=== PATIENT | male | born 1945 | race Caucasian/White ===

== ENCOUNTER 2023-08-07 19:34 | Inpatient (IN) | payer MEDICARE, OTHER, SELFPAY ==
[2023-08-07] VITALS (16 sets, daily range): BP systolic 85–130; BP diastolic 48–79; BMI 23.9
[2023-08-07] MEDS: NSS 2000 IV (16:45)
[2023-08-07] MEDS: TYLENOL 1000 MG PO (16:45)
[2023-08-07 16:47] LABS: % Basophils 0.3 % (0-2); % Eosinophils 1.3 % (0-6); % Immature Granulocytes 0.3 % (0-0.5); % Lymphocytes 21.5 % (20.5-51.1); % Monocytes 0.7 % (1.7-9.3); % Neutrophils 75.9 % (42.2-75.2); Absolute Lymphocytes 0.7 10^3/uL (1.2-3.4); Absolute Neutrophils 2.3 10^3/uL (1.4-6.5); Hemoglobin 12.4 g/dL (13.0-18.0); Mean Corp Hgb Conc. 34.4 g/dL (33.0-37.0); Mean Corpuscular Hgb 29.7 pg (27.0-31.0); Mean Corpuscular Volume 86.3 fL (80.0-94.0); Mean Platelet Volume 9.7 fL (7.4-10.4); Nucleated Red Blood Cells % 0 % (-); Platelet Count 249 10^3/uL (130-400); Red Blood Cell Count 4.17 10^6/uL (4.70-6.10); Red Cell Dist. Width 13.7 % (11.5-14.5)
--- NOTE | 2023-08-07 16:48 | ED.GENMED ---
History of Present Illness
General
Chief Complaint: Fever
Source: patient and family
Exam Limitations: none
Time Seen by Provider: 08/07/23 16:26
Nursing documentation reviewed up to this point in time: agreed with
Travel History
Have you had any contact with someone who has COVID-19?: No
Do you have any symptoms of coronavirus? Fever > 100 degrees, chills, cough, shortness of breath, sore throat, loss of taste or smell, muscle aches, or headache?: Yes
Symptoms:: fever
History of Present Illness
History of Present Illness:
77-year-old male presents with fever and chills with red urine onset just prior to arrival vomited, no shortness of breath, states pain is different his kidney stone pain, he suffers with diabetes
Past History
Past History
ED Past Medical History: NIDDM and Other (Kidney stone)
ED Past Surgical History: Urological
Review of Systems
Review of Systems
All Other Systems: Not applicable
Constitutional: Reports fever, fatigue and chills
EENT: Reports no symptoms
Respiratory: Reports no symptoms
ABD/GI: Reports vomiting
: Reports bleeding
Musculoskeletal: Reports muscle stiffness
Skin: Reports no symptoms
Neurological: Reports weakness
Endocrine: Reports no symptoms
Phy Exam
Physical Exam
Physical Exam:
Physical Exam
General: Ill-appearing male normal mental
Neck: No jaundice
Heart: Tachycardic
Lungs: no acute respiratory distress. clear bilaterally
Abdomen: Soft nontender no CVA tenderness
Neuro: alert and oriented. no focal neurological deficits
Skin: no rash
Psychiatric: well kept. interactive and cooperative
Extremities: no edema.
Course
Orders/Labs/Results
Orders:
Orders
08/07/23 16:24
Electrocardiogram (*1) Urgent
Reason for Study: Other
Other Reason for Exam: Possible Sepsis
Cardiac Monitoring- Treatment ONCE
EKG- Treatment ONCE
IV Insert/Care/Rem.- Treatment PRN
O2 Therapy [RESP] Urgent
Titrate/Wean O2 to maintain O2 sat greater than (%): 93
Special Instructions: TO MAINTAIN CONTINUOUS O2 SATS > OR = 93%
Pulse Ox/cont/shift [RESP] Urgent
Quantity: 1
Special Instructions: CONTINUOUS
08/07/23 16:38
Complete Blood Count/With Diff Urgent
Comprehensive Metabolic Panel Urgent
Lactic Acid Q4H
Comment: ON ICE, CANCEL 2ND ORDER IF FIRST LACTIC ACID LEVEL <2
Blood Culture Q30M
MADDY Source: Blood/Venous
Specimen Description:
Comment: FROM 2 SEPARATE SITES
08/07/23 16:39
Blood Culture Q30M
MADDY Source: Blood/Venous
Specimen Description:
Comment: FROM 2 SEPARATE SITES
08/07/23 16:41
0.9% Sodium Chloride 1000 ml [Nss] 2,000 ml IV BOLUS
Acetaminophen [Tylenol] 1,000 mg PO NOW STA
08/07/23 16:42
Acetaminophen [Tylenol] 1,000 mg .ROUTE .STK-MED ONE
08/07/23 16:47
CT Abd/pel Without Iv Or Oral Urgent
Comment:
Reason For Exam: fever bloody urine
CR Chest - 2 Views Urgent
Comment:
Reason For Exam: fever
08/07/23 16:48
CefTRIAXone [Rocephin] 1,000 mg IV NOW STA
08/07/23 16:56
COVID-19 Antigen Urgent
Source: Nasal Swab
Influenza A+B Rapid Molecular Urgent
MADDY Source: Nasal Swab
Specimen Description:
08/07/23 18:19
Urinalysis Reflex To Culture Urgent
Date Specimen was Collected: 08/07/23
Time Specimen was Collected: 16:24
Urine Microscopic Reflex Cult Urgent
Urine Culture Urgent
MADDY Source: U
Specimen Description:
Date Specimen was Collected: 08/07/23
Time Specimen was Collected: 16:24
08/07/23 18:57
UROLOGY CONSULT Routine
Consulting Provider: Teodoro Art
Was physician already notified: Yes
08/07/23 18:58
Admit/Transfer Patient As Directed
Co-Sign Provider:
Level of Care: Inpatient admission
Assign to:: IMU- Intermediate Care
Physician / Group: gil diaz
Diagnosis: sepsis
Reason for Hospitalization: sepsis
Expected length of stay greater than two midnights?: Yes
ELOS- Estimated Length of Stay in days: 3
I certify the patient meets the requirements for IP care: Yes
08/07/23 18:59
Code Status As Directed
Resuscitation Status: Full Code
08/07/23 20:30
Lactic Acid Q4H
Comment: ON ICE, CANCEL 2ND ORDER IF FIRST LACTIC ACID LEVEL <2
08/09/23 11:00
DC Protocol for Telemetry ONCE
Abnormal Lab Results
08/07/23 08/07/23
16:38 18:19
WBC 3.0 L 10^3/uL
(4.8-10.8)
RBC 4.17 L 10^6/uL
(4.70-6.10)
Hgb 12.4 L g/dL
(13.0-18.0)
Hct 36.0 L %
(39.0-52.0)
Absolute Lymphs (auto) 0.7 L 10^3/uL
(1.2-3.4)
Absolute Monos (auto) 0.0 L 10^3/uL
(0.1-0.6)
Neutrophils % 75.9 H %
(42.2-75.2)
Monocytes % 0.7 L %
(1.7-9.3)
Sodium 134 L mmol/L
(135-145)
Carbon Dioxide 21 L mmol/L
(22-30)
Glucose 128 H mg/dl
(70-99)
Lactic Acid 2.9 H mmol/L
(0.7-2.0)
Ur Occult Blood Reflex 2+ A
(Negative)
Leukocyte Esterase Rfl Trace A
(Negative)
Urine RBC 30-40 A /HPF
(0-2)
Urine Bacteria (Reflex) Many A
(Negative)
08/07/23 16:38
08/07/23 16:38
Vital Signs
Initial and Last Documented VS:
Initial Vital Signs
Temp Pulse Resp BP Pulse Ox
102.3 F H 112 18 122/60 97
08/07/23 16:15 08/07/23 16:15 08/07/23 16:15 08/07/23 16:15 08/07/23 16:15
Last Documented Vital Signs
Temp Pulse Resp BP Pulse Ox
98.2 F 97 19 97/55 97
08/07/23 18:20 08/07/23 19:09 08/07/23 19:09 08/07/23 19:09 08/07/23 16:15
MDM/Problems Addressed
Differential Diagnosis Includes:
Sepsis bacteremia UTI pneumonia COVID influenza renal stone
MDM/Problems Addressed:
Fever chills
Chronic conditions affecting care:
Diabetes
Chronic conditions affecting care: DM
Acute Exacerbation and/or Progression of Chronic Illness: DM
*Radiology
Radiology exam reviewed: preliminary read by ED provider
*Pulse Oximetry
Patient hypoxic: no
*[employer] Interpretation
Rate: normal
Interpretation: abnormal
Heart Rate: 120
Rhythm: sinus
*Critical Care Note
Total Time (30-74mins, 75-104mins- exclusive of procedures): 30
Update Note
Update Note:
5:45 PM labs noted low white count persistently febrile chest x-ray CT the abdomen ports noted antibiotics have been ordered
Update blood pressure a bit soft, will make sure he gets a full 30 cc/kg sepsis resuscitation bolus consideration for pressors
ED Attending Note
-
Portions of this chart may have been created with voice recognition software.� Occasional wrong word or��sound alike� substitutions may have occurred due to the inherent limitations of voice recognition software.
Discharge Plan
Departure
Patient Disposition: Admit
Date of Disposition: 08/07/23
Time of Disposition: 17:51
Admit to: Med/Surg and IMU
Presentation/result/management discussed w/ accepting MD/DO: Hospitalist
Patient with high blood pressure during this ER visit?: No
Condition: Fair
Covid-19: Negative COVID-19
Discharge Problem:
Bacteremia
Interventions
Interventions:
*Risk Screen - Suicide Last Done: 08/07/23 16:44
*General Assessment Last Done: 08/07/23 16:15
*Neglect/Abuse Screening Last Done: 08/07/23 16:44
*ED COVID-19 Vaccine History Last Done: 08/07/23 16:15
ED- Neurological Assessment Last Done: 08/07/23 16:44
ED-Skin Assessment Last Done: 08/07/23 16:44
[2023-08-07 16:57] LABS: Lactic Acid 2.9 mmol/L (0.7-2.0)
[2023-08-07 17:00] LABS: ALT (SGPT) 37 U/L (0-50); AST (SGOT) 59 U/L (17-59); Albumin 3.9 g/dl (3.5-5.0); Alkaline Phosphatase 82 U/L (38-126); Blood Urea Nitrogen 19 mg/dl (9-20); Calcium 8.7 mg/dl (8.4-10.2); Carbon Dioxide 21 mmol/L (22-30); Chloride 105 mmol/L (98-107); Glucose 128 mg/dl (70-99); Potassium 4.5 mmol/L (3.5-5.1); Sodium 134 mmol/L (135-145); Total Bilirubin 0.6 mg/dl (0.2-1.3); Total Protein 6.6 g/dl (6.3-8.2); eGFR > 60.00
[2023-08-07 17:13] LABS: COVID-19 Antigen Negative (Negative)
[2023-08-07] MEDS: ROCEPHIN 1000 MG IV (17:26)
--- NOTE | 2023-08-07 18:32 | HPS.HSE ---
Addendum entered and electronically signed by Rahul Caro MD 08/07/23 19:12:
I independently saw and examined the patient on 08/07/23.
The APPLICATION DEVELOPMENT TEAM LEAD's note was reviewed and I agree with the note.
Comment:
77-year-old male with past medical history of HTN, HLD, type 2 DM, kidney stones and UTI presented with acute onset of fever, chills, associated with generalized weakness. Patient's was present in the patient's room at the time of attempted
patient encounter. Patient said he had hematuria which started as pink but subsequent urination showed bloody urine. Patient also reported dysuria. Patient vomited twice.
Febrile with Temp 102.3 F
Tachycardic in the low 100s range
BP good
RR good
Oxygen saturations good
Physical Exam
General: Well Developed, Well Nourished and No Apparent Distress
HEENT: Normocephalic, Moist mucous membranes and Atraumatic
Respiratory: Clear
Cardiac: S1/S2 and Regular Rhythm
GI: Soft, Non Tender, Non Distended and Normal Bowel Sounds
Musculoskeletal: No Cyanosis and No Edema
Skin: Warm. Dry.
Neuro: AAO x 3 and Nonfocal/grossly intact
Psych: Calm
Assessment/Plan
#fever/chills unclear cause likely complicated UTI/punctate right intrarenal calculi
#Sepsis Secondary to Complicated UTI
#Hematuria
-sepsis as evident by tachy and lactic.
-UA occult blood and RBCs, trace leukocyte esterase, and many bacteria
-lactic 2.9 -- trend lactic acid
-covid negative
-chest x ray negative for acute disease
-CT abdomen pelvis as per radiologist's report with No CT evidence for obstructive uropathy. Punctate right intrarenal calculi. Small calcifications in the posterior urinary bladder lumen.. Mild chronic pancreatitis. Colonic diverticulosis. Severe
aortobiiliac calcified atherosclerosis.
-negative for influenza and b
-Follow blood cultures
-iv ceftriaxone
-urology consulted, recommendations appreciated
-PT/OT consult
# hyperlipidemia
-Zetia continued
-zocor continued
# Type 2 diabetes
-sliding scale and accuchecks ACHS
-CHO diet
-glargine 10u at hs (reduced from home dose)
-hold metformin
#essential htn
-valsartan continued
#DVT prophylaxis
-scd
#CODE status
-full code
Original Note:
Family Physician
-
Family Physician: Jackson Garcia
Chief Complaint
-
chills
generalized weakness
n/v
History of Present Illness
77-year-old male presents with PMH for HTN, HLD, type 2 DM, kidney stones, UTI presented to us with acute onset of fever, chills, associated with generalized weakness. patient vomited twice. he also noted transient bloody urine, urinary frequency
and was uncomfortable. denied NEVES, dizzy or syncopal episode. denied chest pain, sob. denied abdominal pain, diarrhea.
UA negative. covid , flu negative. chest x ray negative. admitting for further managment.
Medical History
Past Medical History
Past Medical History: Reports Other
Additional Past Medical History:
htn
hld
type 2 Dm
kidney stones
Past Surgical History: Reports Other
Additional Past Surgical History:
kidney stone extraction
Social History
Tobacco: Non-smoker
Alcohol: None
Drug: None
Personal:
Living: With Family
Family History
Family History: Not pertinent
Allergies / Home Medications
Allergies reflects when Allergies were last updated in [facility].
Home Medications with original date entered in [facility]
Allergy/Medication List:
Allergies
Allergy/AdvReac Type Severity Reaction Status Date / Time
No Known Allergies Allergy Unverified 08/07/23 16:21
Home Medications
aspirin 81 mg tablet,delayed release 81 mg PO QPM 08/07/23
ezetimibe 10 mg tablet (Zetia) 10 mg PO QPM 08/07/23
insulin glargine U-300 conc 300 unit/mL (3 mL) subcutaneous pen (Toujeo Max U-300 SoloStar) 33 unit SC QPM 08/07/23
metformin 500 mg tablet,extended release 24 hr 1,000 mg PO BID 08/07/23
naproxen sodium 220 mg tablet (Aleve) 220 mg PO BID PRN mild pain 08/07/23
simvastatin 40 mg tablet (Zocor) 40 mg PO QPM 08/07/23
therapeutic multivitamin 1 tab PO DAILY 08/07/23
valsartan 160 mg tablet 160 mg PO QPM 08/07/23
Review of Systems
-
Constitutional: Reports Fever, Fatigue and Chills
EENT: Reports No Symptoms
Respiratory: Reports No Symptoms
Cardiac: Reports No Symptoms
Abdomen/GI: Reports Nausea and Vomiting
: Reports Difficulty Voiding and Bleeding
Musculoskeletal: Reports No Symptoms
Skin: Reports No Symptoms
Neurological: Reports No Symptoms
Endocrine: Reports No Symptoms
Hematologic/Lymphatic: Reports No Symptoms
Psych: Reports No Symptoms
Physical Exam
Vital Signs
Vital Signs
Temp Pulse Resp BP Pulse Ox
98.2 F 104 17 126/63 97
08/07/23 18:20 08/07/23 18:00 08/07/23 18:00 08/07/23 18:00 08/07/23 16:15
Physical Exam
General: Well Developed, Well Nourished and No Apparent Distress
HEENT: NormoCephalic, Moist mucous membranes and Atraumatic
Respiratory: Clear
Cardiac: S1/S2 and Regular Rhythm; No Murmur or Rub
GI: Soft, Non Tender, Non Distended and Normal Bowel Sounds; No Organomegaly
Rectal: Deferred by Provider
Musculoskeletal: No Clubbing, No Cyanosis and No Edema
Skin: No Rash
Neuro: AO x 3 and Nonfocal/grossly intact
Psych: Calm
Laboratory Results
-
08/07/23 16:38
08/07/23 16:38
Laboratory Results
Lactic Acid 2.9 mmol/L (0.7-2.0) H 08/07/23 16:38
Total Bilirubin 0.6 mg/dl (0.2-1.3) 08/07/23 16:38
AST 59 U/L (17-59) 08/07/23 16:38
ALT 37 U/L (0-50) 08/07/23 16:38
Alkaline Phosphatase 82 U/L (38-126) 08/07/23 16:38
Data Reviewed
-
Diagnostic Radiology: Report Reviewed by me
CT Scan: Report Reviewed by me
Lab Data: Labs Reviewed by me
Impression/Plan
-
#fever/chills unclear cause likely complicated UTI/punctate right intrarenal calculi
-sepsis as evident by tachy and lactic.
-UA negative
-lactic 2.9
-covid negative
-chest x ray negative for acute disease
-CT abdomen pelvis with No CT evidence for obstructive uropathy. Punctate right intrarenal calculi. Small calcifications in the posterior urinary bladder lumen.. Mild chronic pancreatitis. Colonic diverticulosis. Severe aortobiiliac calcified
atherosclerosis.
-negative for influenza and b
-blood culture sent from ER
-trend lactic acid
-iv ceftriaxone
-urology consulted
-PT/OT consult
# hyperlipidemia
-Zetia continued
-zocor continued
# Type 2 diabetes
-sliding scale
-CHO diet
-glargine 10u at hs
-hold metformin
#essential htn
-valsartan continued
#DVT prophylaxis
-scd
#CODE status
-full code
[2023-08-07 18:34] LABS: Urine Albumin Trace (Neg - Trace); Urine Bilirubin Negative (Negative); Urine Character Clear (Clear); Urine Color Yellow; Urine Glucose Negative (Negative); Urine Ketone Negative (Negative); Urine Leukocyte Trace (Negative); Urine Nitrite Negative (Negative); Urine Occult Blood 2+ (Negative); Urine Specific Gravity 1.015 (<1.030); Urine Urobilinogen Negative (Neg - 1+)
[2023-08-07 18:38] LABS: Urine Bacteria Many (Negative); Urine Red Blood Cell 30-40 /HPF (0-2); Urine Squamous Cell 0-2 /LPF (Few)
[2023-08-07] MEDS: LEVOPHED 250 IV (20:03)
[2023-08-07] MEDS: NSS 1000 IV ×2 (20:03→22:09)
--- NOTE | 2023-08-07 21:14 | TRANSFER ---
Received pt from the ER via stretcher, he was able to stand and ivot to his bed without difficulty or dizziness. He is alert and oriented and cooperative. Lungs are clear and rhythm is NSR at 92 BPM. Fammily arrived with patient and at the
bedside. Glucose obtained and lactic level drawn. NSS bolus completed. Lunch box given and pt oriented to his room and call mayer in reach.
[2023-08-07 21:25] LABS: Glucose - Point of Care 108 mg/dl (70-99)
[2023-08-07 21:41] LABS: Lactic Acid 1.9 mmol/L (0.7-2.0)
[2023-08-07] MEDS: LANTUS 0.0800000000000000017 UNITS SC (22:15)
[2023-08-08] VITALS (42 sets, daily range): BP systolic 82–149; BP diastolic 39–76; PULSE 79–88; O2SAT 96–97; BMI 23.1
[2023-08-08 05:37] LABS: Hematocrit 30.1 % (39.0-52.0); Hemoglobin 10.3 g/dL (13.0-18.0); Mean Corp Hgb Conc. 34.2 g/dL (33.0-37.0); Mean Corpuscular Hgb 30.4 pg (27.0-31.0); Mean Corpuscular Volume 88.8 fL (80.0-94.0); Mean Platelet Volume 10.3 fL (7.4-10.4); Platelet Count 192 10^3/uL (130-400); Red Blood Cell Count 3.39 10^6/uL (4.70-6.10); Red Cell Dist. Width 13.9 % (11.5-14.5); White Blood Cell Count 22.1 10^3/uL (4.8-10.8)
--- NOTE | 2023-08-08 07:08 | W.PN.HOSP.TC ---
Today's Communication/Plan
-
cont IV abx
follow cultures
trend WBC
repeat urine culture
Downgrade to tele
glycemic control
Assessment / Plan
Assessment / Plan
Physical Exam
General: Well Developed, Well Nourished and No Apparent Distress
HEENT: Normocephalic, Moist mucous membranes and Atraumatic
Respiratory: Clear
Cardiac: S1/S2 and Regular Rhythm
GI: Soft, Non Tender, Non Distended and Normal Bowel Sounds
Musculoskeletal: No Cyanosis and No Edema
Skin: Warm. Dry.
Neuro: AAO x 3 and Nonfocal/grossly intact
Psych: Calm
77M HTN, HLD, type 2 DM, kidney stones, UTI p/w acute onset of fever, chills, associated with generalized weakness, vomiting, transient hematuria, urinary frequency, dysuria. COVID Flu negative. CXR no acute abn's. Initial tachycardia fever w
associate hypotension lactic acidosis concerning for severe sepsis. Admitted to IMU on low dose pressors, patient improved with IVF supplementation, lactic acidosis resolved. Pt eventually weaned off pressor support by morning.
#Possible Sepsis UTI
-UA negative
-lactic 2.9 resolved
-covid negative
-chest x ray negative for acute disease
-CT abdomen pelvis with No CT evidence for obstructive uropathy. Punctate right intrarenal calculi. Small calcifications in the posterior urinary bladder lumen.. Mild chronic pancreatitis. Colonic diverticulosis. Severe aortobiiliac calcified
atherosclerosis.
-negative for influenza and b
-blood culture ngtd
-initial urine culture contaminated, repeat urine culture ordered
-cont iv ceftriaxone
-urology consult appreciated
-PT/OT consult appreciated anticipated no needs when ready for discharge
# hyperlipidemia
-Zetia continued
-zocor continued
# Type 2 diabetes
-A1c 7.6
-sliding scale
-CHO diet
-glargine 8U QPM
-hold metformin
-monitor and titrate insulin regimen as necessary
#essential htn
-valsartan on hold d/t hypotension as above
-monitor and consider resuming if BP increases
#DVT prophylaxis
-scd
#CODE status
-full code
Stable for downgrade to Tele 08/08
Discussed with patient and his
I spent a total of 50 minutes with the patient or on the floor. More than 50% of this time involved counseling and coordination of care.
Anticipated Discharge: 24 - 48 hours
Subjective/Interval History
-
Date of Service: August 08, 2023
Seen and examined at bedside in no acute distress. Reported feeling overall well. Denied pain fever chills dysuria.
Objective Data
-
Labs:
Laboratory Results
08/08/23
05:16
WBC 22.1 H
Hgb 10.3 L
Hct 30.1 L
Plt Count 192 D
Vital Signs:
Vital Signs
Temp Pulse Resp BP Pulse Ox
100.0 F 79 21 128/56 93
08/08/23 04:18 08/08/23 06:15 08/08/23 06:15 08/08/23 06:00 08/08/23 06:15
I&O
08/07/23 08/08/23 08/09/23
06:59 06:59 06:59
Intake Total 1200 / 1200
Output Total 250 / 250
Balance 950 / 950
[2023-08-08 07:29] LABS: Glucose - Point of Care 188 mg/dl (70-99)
--- NOTE | 2023-08-08 09:40 | PTCARENOTE ---
levophed drip at 3mcg/min. goal systolic b/p >90. bp 124/76 at 0850. pt assisted out of bed to chair. denies lightheadedness or dizziness, sinus rhythm with rate 80's. levophed rate decreased to 2mcg/min. b/p 140/62 at 0915. levophed discontinued.
b/p 100/53 at 0940. continuing to monitor
[2023-08-08] MEDS: NOVOLOG FLEXPEN-LOW RESISTANCE 1 UNITS SC ×2 (09:41→11:56)
--- NOTE | 2023-08-08 10:03 | CONS.URO ---
Consultation
-
Date/Time Consultation Requested: 08/08/23
Date/Time Consultation Performed: 08/08/23 0815
Requesting Provider: ER
Performing Provider: Kaelyn
Reason for Consultation: hematuria, cUTI
Medical History
History of Present Illness
77M w/ prior urologic history of kidney stones (outside of ) presents to ER w/ acute onset of fever, chills, generalized weakness, vomiting.
Noted acute onset of hematuria w/ urinary frequency earlier in day.
Denies prior h/o hematuria.
Denies dysuria.
Voiding clear urine when examined in his room this morning (urinal at bedside).
Past Medical History
Past Medical History: HTN and Other (Hyperplipidemia, T2DM, nephrolithiasis)
Past Surgical History: Urological (ureteroscopy/stone extraction)
Social History
Tobacco: Non-smoker
Alcohol: None
Drug: None
Personal:
Living: With Family
Employment: Retired
Family History
Family History: Reviewed & Not Pertinent
Allergies/Home Medications
Allergies
Allergy/AdvReac Type Severity Reaction Status Date / Time
No Known Allergies Allergy Unverified 08/07/23 16:21
Home Medications
Medication Instructions Recorded Confirmed Type
aspirin 81 mg tablet,delayed 81 mg PO QPM 08/07/23 08/07/23 History
release
ezetimibe 10 mg tablet (Zetia) 10 mg PO QPM 08/07/23 08/07/23 History
insulin glargine U-300 conc 300 33 unit SC QPM 08/07/23 08/07/23 History
unit/mL (3 mL) subcutaneous pen
(Toujeo Max U-300 SoloStar)
metformin 500 mg tablet,extended 1,000 mg PO BID 08/07/23 08/07/23 History
release 24 hr
naproxen sodium 220 mg tablet 220 mg PO BID PRN mild pain 08/07/23 08/07/23 History
(Aleve)
simvastatin 40 mg tablet (Zocor) 40 mg PO QPM 08/07/23 08/07/23 History
therapeutic multivitamin 1 tab PO DAILY 08/07/23 08/07/23 History
valsartan 160 mg tablet 160 mg PO QPM 08/07/23 08/07/23 History
Review of Systems
-
History Source: Patient
A 12 point Review of Systems was completed except as noted: Yes
Constitutional: Reports Fever, Weight Loss and Chills
EENT: Reports No Symptoms
Respiratory: Reports No Symptoms
Cardiac: Reports No Symptoms
Abdomen/GI: Reports Vomiting
: Reports Frequency and Bleeding
Musculoskeletal: Reports No Symptoms
Skin: Reports No Symptoms
Neurological: Reports No Symptoms
Endocrine: Reports No Symptoms
Hematologic/Lymphatic: Reports No Symptoms
Psych: Reports No Symptoms
Physical Exam
Vital Signs
Vital Signs
Temp Pulse Resp BP Pulse Ox
99.0 F 97 24 140/62 97
08/08/23 08:43 08/08/23 09:30 08/08/23 09:30 08/08/23 09:16 08/08/23 09:16
Lab / Testing Results
Laboratory Results
08/08/23 05:16
08/07/23 16:38
Physical Exam
General: Well Developed, Well Nourished and No Apparent Distress
HEENT: Normocephalic
Respiratory: Non Labored Respirations
Cardiac: S1/S2
Breast: N/A
GI: Soft, Non Tender and Non Distended
Rectal: Deferred by Provider
Genito-urinary: No Costovertebral Tend and Clear Urine
Musculoskeletal: No Edema
Skin: Warm and Dry
Neuro: AO x 3, No Motor Deficits and Nonfocal/Grossly Intact
Hematologic/Lymphatic: No Lymphadenopathy
Psych: Calm and Intact Judgement
Assessment / Plan
-
Hematuria - suspected secondary to acute cystitis
Urosepsis - secondary to cUTI
CTAP w/o IV contrast: punctate right renal stones, small calcifications in posterior bladder wall => no evidence of obstructive uropathy
WBC 22
Cr wnl
UA +RBCs/many bacteria
UCx pending
- CT imaging reviewed w/ patient
- No indication for urologic intervention
- Consider tamsulosin 0.4 mg qhs WHEN off vasopressors and IF SBPs stable
- IV antibiotics pending UCx S/S
D/w patient.
D/w Hospitalist.
Data Reviewed
-
Total Time Spent with Patient (in minutes): 55
CT Scan: Image personally visualized and interpreted, Report Reviewed by Me, Discussed with Physician and Discussed with Patient
Lab Data: Labs Reviewed, Discussed with Physician and Discussed with Patient
Old Records: Reviewed
[2023-08-08] MEDS: NSS 1000 IV (10:32)
[2023-08-08 10:57] LABS: Glycohemoglobin (HgbA1c) 7.6 % (4.0-5.6)
[2023-08-08 11:49] LABS: Glucose - Point of Care 172 mg/dl (70-99)
[2023-08-08] MEDS: NOVOLOG FLEXPEN-LOW RESISTANCE SC (16:56)
[2023-08-08 16:57] LABS: Glucose - Point of Care 133 mg/dl (70-99)
[2023-08-08] MEDS: ZETIA 10 MG PO (17:45)
[2023-08-08] MEDS: ROCEPHIN 1000 MG IV (17:45)
[2023-08-08] MEDS: LIPITOR 20 MG PO (17:48)
[2023-08-08] MEDS: ASPIR LOW (ENTERIC COATED) 81 MG PO (17:48)
[2023-08-08] MEDS: LANTUS 0.0800000000000000017 UNITS SC (18:38)
[2023-08-08 18:43] LABS: Glucose - Point of Care 231 mg/dl (70-99)
[2023-08-08 21:37] LABS: Glucose - Point of Care 146 mg/dl (70-99)
[2023-08-08 22:31] LABS: Hepatitis C Antibody Negative (Negative)
[2023-08-09 03:39] VITALS: BP 116/70
--- NOTE | 2023-08-09 07:25 | W.PN.HOSP.TC ---
Today's Communication/Plan
-
cont IV abx
repeat blood cultures
trend WBC
glycemic control
Assessment / Plan
Assessment / Plan
Physical Exam
General: Well Developed, Well Nourished and No Apparent Distress
HEENT: Normocephalic, Moist mucous membranes and Atraumatic
Respiratory: Clear
Cardiac: S1/S2 and Regular Rhythm
GI: Soft, Non Tender, Non Distended and Normal Bowel Sounds
Musculoskeletal: No Cyanosis and No Edema
Skin: Warm. Dry.
Neuro: AAO x 3 and Nonfocal/grossly intact
Psych: Calm
77M HTN, HLD, type 2 DM, kidney stones, UTI p/w acute onset of fever, chills, associated with generalized weakness, vomiting, transient hematuria, urinary frequency, dysuria. COVID Flu negative. CXR no acute abn's. Initial tachycardia fever w
associate hypotension lactic acidosis concerning for severe sepsis. Admitted to IMU on low dose pressors, patient improved with IVF supplementation, lactic acidosis resolved. Pt eventually weaned off pressor support by morning.
#Possible Sepsis UTI
-initially admitted to IMU, with clinical improvement downgraded to Tele 08/08
-UA negative
-lactic 2.9 resolved
-covid negative
-chest x ray negative for acute disease
-CT abdomen pelvis with No CT evidence for obstructive uropathy. Punctate right intrarenal calculi. Small calcifications in the posterior urinary bladder lumen.. Mild chronic pancreatitis. Colonic diverticulosis. Severe aortobiiliac calcified
atherosclerosis.
-negative for influenza and b
-one set of blood cultures positive anearobic bottle G+ cocci in clusters, rest of initial blood cultures negative, suspect contaminant, cultures repeated, follow up speciation
-initial urine culture contaminated, patient however overall improving regardless, no need for repeat urine culture at this time
-cont iv ceftriaxone
-urology consult appreciated
-PT/OT consult appreciated anticipated no needs when ready for discharge
# hyperlipidemia
-Zetia continued
-zocor continued
# Type 2 diabetes
-A1c 7.6
-sliding scale
-CHO diet
-glargine 8U QPM
-hold metformin
-monitor and titrate insulin regimen as necessary
#essential htn
-valsartan on hold d/t hypotension as above
-monitor and consider resuming if BP increases
#DVT prophylaxis
-scd
#CODE status
-full code
Discussed with patient and his
I spent a total of 50 minutes with the patient or on the floor. More than 50% of this time involved counseling and coordination of care.
Anticipated Discharge: 24 - 48 hours
Subjective/Interval History
-
Date of Service: August 09, 2023
No new acute issues reports feeling well. Appears comfortable at this time.
Objective Data
-
Labs:
Laboratory Results
08/09/23
06:19
WBC Pending
Hgb Pending
Hct Pending
Plt Count Pending
Sodium Pending
Potassium Pending
Chloride Pending
Carbon Dioxide Pending
BUN Pending
Creatinine Pending
Glucose Pending
Calcium Pending
Vital Signs:
Vital Signs
Temp Pulse Resp BP Pulse Ox
99.1 F 80 18 116/70 97
08/09/23 03:39 08/09/23 03:39 08/09/23 03:39 08/09/23 03:39 08/09/23 03:39
I&O
08/08/23 08/09/23 08/10/23
06:59 06:59 06:59
Intake Total 2490 / 2490 240 / 240
Output Total 600 / 600 375 / 375
Balance 1890 / 1890 -135 / -135
[2023-08-09 07:43] LABS: Glucose - Point of Care 190 mg/dl (70-99)
[2023-08-09 07:44] VITALS: BP 123/69
[2023-08-09 07:45] LABS: Hematocrit 31.1 % (39.0-52.0); Hemoglobin 10.5 g/dL (13.0-18.0); Mean Corp Hgb Conc. 33.8 g/dL (33.0-37.0); Mean Corpuscular Hgb 29.9 pg (27.0-31.0); Mean Corpuscular Volume 88.6 fL (80.0-94.0); Mean Platelet Volume 10.4 fL (7.4-10.4); Platelet Count 188 10^3/uL (130-400); Red Blood Cell Count 3.51 10^6/uL (4.70-6.10); Red Cell Dist. Width 14.3 % (11.5-14.5)
[2023-08-09] MEDS: NOVOLOG FLEXPEN-LOW RESISTANCE 1 UNITS SC ×3 (07:51→17:29)
[2023-08-09 07:58] LABS: Blood Urea Nitrogen 16 mg/dl (9-20); Calcium 8.3 mg/dl (8.4-10.2); Carbon Dioxide 22 mmol/L (22-30); Chloride 110 mmol/L (98-107); Estimated Creatinine Clearance 64 ml/min; Glucose 117 mg/dl (70-99); Magnesium 1.9 mg/dl (1.6-2.3); Phosphorus 2.9 mg/dl (2.5-4.5); Potassium 3.9 mmol/L (3.5-5.1); Sodium 136 mmol/L (135-145); eGFR > 60.00
[2023-08-09 11:18] VITALS: BP 137/60
[2023-08-09 12:09] LABS: Glucose - Point of Care 168 mg/dl (70-99)
--- NOTE | 2023-08-09 13:32 | CM ---
metrology manager reviewed patient's chart and met with patient and patient reports that he lives with his spouse in a multilevel home, patient is independent with adl's and ambulation, patient works, and drives, patient has a prescription plan and uses
[facility].
PCP: Dr. Garcia
Plan; Home no needs when stable.
[2023-08-09 15:11] VITALS: BP 116/59
[2023-08-09 16:55] LABS: Glucose - Point of Care 190 mg/dl (70-99)
[2023-08-09] MEDS: ASPIR LOW (ENTERIC COATED) 81 MG PO (17:28)
[2023-08-09] MEDS: ZETIA 10 MG PO (17:28)
[2023-08-09] MEDS: LIPITOR 20 MG PO (17:28)
[2023-08-09] MEDS: LANTUS 0.0800000000000000017 UNITS SC (17:29)
[2023-08-09] MEDS: ROCEPHIN 1000 MG IV (17:29)
[2023-08-09 19:12] VITALS: BP 145/60
[2023-08-09 21:31] LABS: Glucose - Point of Care 183 mg/dl (70-99)
[2023-08-09 23:44] VITALS: BP 128/62
[2023-08-10] VITALS (8 sets, daily range): BP systolic 119–167; BP diastolic 51–88; PULSE 92; O2SAT 98; BMI 23.0
[2023-08-10 06:57] LABS: Hematocrit 32.5 % (39.0-52.0); Hemoglobin 11.2 g/dL (13.0-18.0); Mean Corp Hgb Conc. 34.5 g/dL (33.0-37.0); Mean Corpuscular Hgb 30.6 pg (27.0-31.0); Mean Corpuscular Volume 88.8 fL (80.0-94.0); Mean Platelet Volume 10.5 fL (7.4-10.4); Platelet Count 182 10^3/uL (130-400); Red Blood Cell Count 3.66 10^6/uL (4.70-6.10); Red Cell Dist. Width 13.9 % (11.5-14.5); White Blood Cell Count 10.4 10^3/uL (4.8-10.8)
--- NOTE | 2023-08-10 06:58 | W.PN.HOSP.TC ---
Today's Communication/Plan
-
IV abx transitioned to oral cefdinir
Follow recent blood cultures
If patient remains stable/continues to improve, and recent blood cultures remain negative, likely discharge tomorrow
Assessment / Plan
Assessment / Plan
Physical Exam
General: Well Developed, Well Nourished and No Apparent Distress
HEENT: Normocephalic, Moist mucous membranes and Atraumatic
Respiratory: Clear
Cardiac: S1/S2 and Regular Rhythm
GI: Soft, Non Tender, Non Distended and Normal Bowel Sounds
Musculoskeletal: No Cyanosis and No Edema
Skin: Warm. Dry.
Neuro: AAO x 3 and Nonfocal/grossly intact
Psych: Calm
77M HTN, HLD, type 2 DM, kidney stones, UTI p/w acute onset of fever, chills, associated with generalized weakness, vomiting, transient hematuria, urinary frequency, dysuria. COVID Flu negative. CXR no acute abn's. Initial tachycardia fever w
associate hypotension lactic acidosis concerning for severe sepsis. Admitted to IMU on low dose pressors, patient improved with IVF supplementation, lactic acidosis resolved. Pt eventually weaned off pressor support by morning.
#Possible Sepsis UTI with associate shock
-initially admitted to IMU, with clinical improvement downgraded to Tele 08/08
-UA negative
-lactic 2.9 resolved
-covid negative
-chest x ray negative for acute disease
-CT abdomen pelvis with No CT evidence for obstructive uropathy. Punctate right intrarenal calculi. Small calcifications in the posterior urinary bladder lumen.. Mild chronic pancreatitis. Colonic diverticulosis. Severe aortobiiliac calcified
atherosclerosis.
-negative for influenza and b
-initial blood cultures likely contaminated coag neg staph, repeat blood cultures so for NGTD 24 hours
-initial urine culture contaminated, patient however overall improving regardless, no need for repeat urine culture at this time
-iv ceftriaxone converted to cefdinir planned for 5 more days
-urology consult appreciated
-PT/OT consult appreciated anticipated no needs when ready for discharge
# hyperlipidemia
-Zetia continued
-zocor continued
# Type 2 diabetes
-A1c 7.6
-sliding scale
-CHO diet
-glargine 8U QPM
-hold metformin
-monitor and titrate insulin regimen as necessary
#essential htn
-valsartan on hold d/t hypotension as above
-monitor and consider resuming if BP increases
#DVT prophylaxis
-scd
#CODE status
-full code
I spent a total of 50 minutes with the patient or on the floor. More than 50% of this time involved counseling and coordination of care.
Anticipated Discharge: Within 24 hours
Subjective/Interval History
-
Date of Service: August 10, 2023
No acute distress reports feeling well. denies new acute issues at this time.
Objective Data
-
Labs:
Laboratory Results
08/10/23
06:18
WBC Pending
Hgb Pending
Hct Pending
Plt Count Pending
Sodium Pending
Potassium Pending
Chloride Pending
Carbon Dioxide Pending
BUN Pending
Creatinine Pending
Glucose Pending
Calcium Pending
Vital Signs:
Vital Signs
Temp Pulse Resp BP Pulse Ox
98.1 F 61 20 119/51 98
08/10/23 03:00 08/10/23 03:00 08/10/23 03:00 08/10/23 03:00 08/10/23 03:00
I&O
08/08/23 08/09/23 08/10/23
06:59 06:59 06:59
Intake Total 2490 / 2490 240 / 240 1620 / 1620
Output Total 600 / 600 375 / 375
Balance 1890 / 1890 -135 / -135 1620 / 1620
[2023-08-10 07:05] LABS: Blood Urea Nitrogen 17 mg/dl (9-20); Calcium 8.7 mg/dl (8.4-10.2); Carbon Dioxide 26 mmol/L (22-30); Chloride 104 mmol/L (98-107); Estimated Creatinine Clearance 64 ml/min; Glucose 162 mg/dl (70-99); Phosphorus 3.7 mg/dl (2.5-4.5); Potassium 4.4 mmol/L (3.5-5.1); Sodium 137 mmol/L (135-145); eGFR > 60.00
[2023-08-10 07:42] LABS: Glucose - Point of Care 156 mg/dl (70-99)
[2023-08-10] MEDS: NOVOLOG FLEXPEN-LOW RESISTANCE 1 UNITS SC ×3 (08:01→17:30)
[2023-08-10 11:42] LABS: Glucose - Point of Care 194 mg/dl (70-99)
--- NOTE | 2023-08-10 13:05 | PN.CDI ---
CDI
- -
CDI:
Physician Documentation Request
Admit Date: 08/07/23 19:34
Dear Doctor Lino,
Please review the following and provide your response in the progress notes.
Current documentation includes a diagnosis of hypotension.
Clinical Indicators:
- 08/09 PN 'hypotension lactic acidosis concerning for severe sepsis'
- 'Admitted to IMU on low dose pressors'
- Started on Levophed
- 08/08 systolic BP 80-90's, MAPs 60's
Please clarify which of the following is the most likely etiology of the above symptoms and treatment rendered:
Septic shock
Shock, unknown type
Hypotension - indicate type/etiology, such as idiopathic, neurogenic or orthostatic, post-procedural, postoperative, due to hemodialysis, chronic, drug induced (indicate drug), etc.
Other
Use of terms such as suspected, likely, concern for, or probable (associated with a specific diagnosis that is being evaluated, monitored, or treated as if it exists) are acceptable and can be coded in the inpatient setting, when documented at the
time of discharge.
Thank you,
Charity Espinoza RN
CDI Specialist
Please use your independent medical judgment in providing your response.
[2023-08-10 17:10] LABS: Glucose - Point of Care 176 mg/dl (70-99)
[2023-08-10] MEDS: ASPIR LOW (ENTERIC COATED) 81 MG PO (17:30)
[2023-08-10] MEDS: ZETIA 10 MG PO (17:30)
[2023-08-10] MEDS: LIPITOR 20 MG PO (17:30)
[2023-08-10] MEDS: LANTUS 0.0800000000000000017 UNITS SC (18:12)
[2023-08-10] MEDS: OMNICEF 300 MG PO (20:57)
[2023-08-10] MEDS: FLOMAX 0.400000000000000022 MG PO (20:57)
[2023-08-10 22:04] LABS: Glucose - Point of Care 209 mg/dl (70-99)
[2023-08-11 03:15] VITALS: BP 114/57
[2023-08-11 06:53] LABS: Hematocrit 31.7 % (39.0-52.0); Hemoglobin 11.1 g/dL (13.0-18.0); Mean Corpuscular Hgb 29.9 pg (27.0-31.0); Mean Corpuscular Volume 85.4 fL (80.0-94.0); Mean Platelet Volume 10.4 fL (7.4-10.4); Platelet Count 215 10^3/uL (130-400); Red Blood Cell Count 3.71 10^6/uL (4.70-6.10); Red Cell Dist. Width 13.5 % (11.5-14.5); White Blood Cell Count 7.9 10^3/uL (4.8-10.8)
[2023-08-11 07:00] VITALS: BP 119/58
[2023-08-11 07:07] LABS: Glucose - Point of Care 186 mg/dl (70-99)
--- NOTE | 2023-08-11 07:27 | W.PN.HOSP.TC ---
Today's Communication/Plan
-
discharge
Assessment / Plan
Assessment / Plan
Physical Exam
General: Well Developed, Well Nourished and No Apparent Distress
HEENT: Normocephalic, Moist mucous membranes and Atraumatic
Respiratory: Clear
Cardiac: S1/S2 and Regular Rhythm
GI: Soft, Non Tender, Non Distended and Normal Bowel Sounds
Musculoskeletal: No Cyanosis and No Edema
Skin: Warm. Dry.
Neuro: AAO x 3 and Nonfocal/grossly intact
Psych: Calm
77M HTN, HLD, type 2 DM, kidney stones, UTI p/w acute onset of fever, chills, associated with generalized weakness, vomiting, transient hematuria, urinary frequency, dysuria. COVID Flu negative. CXR no acute abn's. Initial tachycardia fever w
associate hypotension lactic acidosis concerning for severe sepsis. Admitted to IMU on low dose pressors, patient improved with IVF supplementation, lactic acidosis resolved. Pt eventually weaned off pressor support by morning.
#Possible Sepsis UTI with associate shock
-initially admitted to IMU, with clinical improvement downgraded to Tele 08/08
-UA negative
-lactic 2.9 resolved
-covid negative
-chest x ray negative for acute disease
-CT abdomen pelvis with No CT evidence for obstructive uropathy. Punctate right intrarenal calculi. Small calcifications in the posterior urinary bladder lumen.. Mild chronic pancreatitis. Colonic diverticulosis. Severe aortobiiliac calcified
atherosclerosis.
-negative for influenza and b
-initial blood cultures likely contaminated coag neg staph, repeat blood cultures so for NGTD 24 hours
-initial urine culture contaminated, patient however overall improving regardless, no need for repeat urine culture at this time
-iv ceftriaxone converted to cefdinir planned for 5 more days
-urology consult appreciated
-PT/OT consult appreciated anticipated no needs when ready for discharge
# hyperlipidemia
-Zetia continued
-zocor continued
# Type 2 diabetes
-A1c 7.6
-sliding scale
-CHO diet
-glargine 8U QPM
-hold metformin
-monitor and titrate insulin regimen as necessary
#essential htn
-valsartan on hold d/t hypotension as above
-monitor and consider resuming if BP increases
#DVT prophylaxis
-scd
#CODE status
-full code
Medically stable for discharge home with outpatient follow up recommendations.
Total Time Preparing Discharge ___45____ minutes including examination of the patient, summary of the hospital stay, instructions for continuing care to all relevant caregivers; and preparation of discharge records, prescriptions, and referral
forms if necessary.
Anticipated Discharge: Today
Subjective/Interval History
-
Date of Service: August 11, 2023
Seen and examined at bedside ambulating without issues denies any new acute issues at this time. Eager to go home.
Objective Data
-
Labs:
Laboratory Results
08/11/23
06:11
WBC 7.9
Hgb 11.1 L
Hct 31.7 L
Plt Count 215
Sodium Pending
Potassium Pending
Chloride Pending
Carbon Dioxide Pending
BUN Pending
Creatinine Pending
Glucose Pending
Calcium Pending
Vital Signs:
Vital Signs
Temp Pulse Resp BP Pulse Ox
97.7 F 66 18 114/57 100
08/11/23 03:15 08/11/23 03:15 08/11/23 03:15 08/11/23 03:15 08/11/23 03:15
I&O
08/10/23 08/11/23 08/12/23
06:59 06:59 06:59
Intake Total 1620 / 1620 1620 / 1620
Balance 1620 / 1620 1620 / 1620
[2023-08-11 07:37] LABS: Blood Urea Nitrogen 18 mg/dl (9-20); Calcium 8.7 mg/dl (8.4-10.2); Carbon Dioxide 24 mmol/L (22-30); Chloride 105 mmol/L (98-107); Estimated Creatinine Clearance 71 ml/min; Glucose 183 mg/dl (70-99); Magnesium 1.9 mg/dl (1.6-2.3); Phosphorus 4.4 mg/dl (2.5-4.5); Potassium 4.1 mmol/L (3.5-5.1); Sodium 135 mmol/L (135-145); eGFR > 60.00
[2023-08-11] MEDS: NOVOLOG FLEXPEN-LOW RESISTANCE 1 UNITS SC (08:26)
[2023-08-11] MEDS: OMNICEF 300 MG PO (08:26)
[2023-08-11 11:04] VITALS: BP 130/68
[2023-08-11 11:52] LABS: Glucose - Point of Care 236 mg/dl (70-99)
[2023-08-11] MEDS: NOVOLOG FLEXPEN-LOW RESISTANCE 2 UNITS SC (11:58)
--- NOTE | 2023-08-11 13:35 | W.DCSUMMARY ---
Discharge Summary
Discharge Data
Date of Admission: 08/07/23
Date of Discharge: 08/11/23
-
Pending Results: Yes
Additional Pending Results:
official culture results
Hospital Course
77M HTN, HLD, type 2 DM, kidney stones, UTI p/w acute onset of fever, chills, associated with generalized weakness, vomiting, transient hematuria, urinary frequency, dysuria.� COVID Flu negative.� CXR no acute abn's.� Initial tachycardia fever w
associate hypotension lactic acidosis concerning for severe sepsis.� Admitted to IMU on low dose pressors, patient improved with IVF supplementation, lactic acidosis resolved. � Pt eventually weaned off pressor support by morning.� Possible Sepsis
UTI with associate shock, initially admitted to IMU, with clinical improvement downgraded to Tele 08/08. UA however negative. Lactic 2.9 resolved. COVID negative. Chest x ray negative for acute disease. CT abdomen pelvis with No CT evidence for
obstructive uropathy. Punctate right intrarenal calculi. Small calcifications in the posterior urinary bladder lumen. Mild chronic pancreatitis. Colonic diverticulosis. Severe aortobiiliac calcified atherosclerosis. Negative for influenza.
initial blood cultures likely contaminated coag neg staph, repeat blood cultures NGTD, remained negative at time of discharge. initial urine culture contaminated, patient however overall improving regardless, no need for repeat urine culture at
this time. IV ceftriaxone converted to cefdinir planned for 5 more days. PT/OT consult appreciated no needs. Urology evaluated and recommended outpatient follow up. Medically stable, patient was discharged home with outpatient follow up
recommendations.
Discharge Plan
-
Patient Disposition: Home (Routine Discharge)
Discharge Diagnosis/Procedures: Possible Sepsis urinary tract infection with associate shock since resolved, hypertension, hyperlipidemia, diabetes, kidney stones, mild chronic pancreatitis, Severe aortobiiliac calcified atherosclerosis,
diverticulosis
Condition: Good
Diet: Diabetic, Carb Controlled
Activity: As tolerated
Driving Restrictions: As prior to admission
Bathing Restrictions: None
Blood Work: Please repeat CBC and BMP with primary care provider in 1 week of discharge
Stop these medications:: Valsartan on hold at this time due to relative low normotensive pressures while off this medication. Please follow up with primary care provider to determine when safe to resume
Activity Restrictions/Additional Instructions:
Please follow up with primary care provider in 1 week of discharge and Urology in 2 weeks of discharge.
Cefdinir has been prescribed for urinary tract infection, 5 more days.
Flomax has been prescribed for kidney stones as per Urology.
Please take medications as prescribed/recommended and follow up with your primary care provider and/or other healthcare provider involved in your care for refills and/or further adjustments of your medication regimen as necessary.
Instructions: Kidney Stones (DC), Urinary Tract Infection, Adult (DC)
Referrals:
Teodoro Art MD [Active] - in two weeks
Jackson Garcia DO [Family Provider] - in one week
Prescriptions:
New
tamsulosin 0.4 mg Capsule
0.4 mg PO HS 30 Days Qty: 30 0RF
cefdinir 300 mg Capsule
300 mg PO Q12 5 Days Qty: 10 0RF
Continued
therapeutic multivitamin Tablet
1 tab PO DAILY
aspirin 81 mg Tablet,Delayed Release (Dr/Ec)
81 mg PO QPM
simvastatin [Zocor] 40 mg Tablet
40 mg PO QPM
metformin 500 mg Tablet Extended Release 24 Hr
1,000 mg PO BID
ezetimibe [Zetia] 10 mg Tablet
10 mg PO QPM
insulin glargine U-300 conc [Toujeo Max U-300 SoloStar] 300 unit/mL (3 mL) Insulin Pen
33 unit SC QPM
naproxen sodium [Aleve] 220 mg Tablet
220 mg PO BID PRN (Reason: mild pain)
Held
valsartan 160 mg Tablet
160 mg PO QPM
Hold Instructions: Follow up with primary care provider to determine when safe to resume
Discharge Orders:
Discharge Patient (As Directed); Ordered 08/11/23
Ordered By: Nayely Huynh
Discharge Date and Time
Discharge Date/Time: 08/11/23 14:12
== END 2023-08-11 14:12 | disposition home or self-care (01) | DRG 871 ==
LOC: 3 WEST ACU 19:34
PROVIDERS: Registered Nurse; ADMITTING PHYSICIAN Hospitalist; ATTENDING PHYSICIAN Internal Medicine; CONSULT PHYSICIAN Surgery; EMERGENCY PHYSICIAN Emergency Medicine; FAMILY PHYSICIAN Family Medicine
DX: A41.1 Sepsis due to other specified staphylococcus (principal); R65.21 Severe sepsis with septic shock; K86.1 Other chronic pancreatitis; E87.20 Acidosis, unspecified; N39.0 Urinary tract infection, site not specified; E11.9 Type 2 diabetes mellitus without complications; N20.0 Calculus of kidney; K57.30 Diverticulosis of large intestine without perforation or abscess without bleeding; R31.9 Hematuria, unspecified; I10 Essential (primary) hypertension; E78.5 Hyperlipidemia, unspecified; Z87.442 Personal history of urinary calculi; Z87.440 Personal history of urinary (tract) infections; Z11.52 Encounter for screening for COVID-19; Z79.84 Long term (current) use of oral hypoglycemic drugs; Z79.4 Long term (current) use of insulin
CPT/HCPCS: 71046; 74176; 80048; 80053; 81003; 81015; 82962; 83036; 83605; 83735; 84100; 85025; 85027; 86803; 87040; 87086; 87147; 87150; 87186; 87205; 87502; 87811; 93005; 96361; 96365; 96375; 97116; 97163; 97166; 99291

== ENCOUNTER → 2024-06-30 09:08 | Outpatient (REF) | payer MEDICARE, OTHER, SELFPAY ==
[2024-06-30 10:37] LABS: Hematocrit 38.1 % (39.0-52.0); Hemoglobin 12.6 g/dL (13.0-18.0); Mean Corp Hgb Conc. 33.1 g/dL (33.0-37.0); Mean Corpuscular Hgb 30.1 pg (27.0-31.0); Mean Corpuscular Volume 91.1 fL (80.0-94.0); Mean Platelet Volume 10.2 fL (7.4-10.4); Platelet Count 290 10^3/uL (130-400); Red Blood Cell Count 4.18 10^6/uL (4.70-6.10); Red Cell Dist. Width 13.6 % (11.5-14.5); White Blood Cell Count 9.2 10^3/uL (4.8-10.8)
[2024-06-30 12:08] LABS: ALT (SGPT) 22 U/L (0-50); AST (SGOT) 24 U/L (17-59); Albumin 4.2 g/dl (3.5-5.0); Alkaline Phosphatase 75 U/L (38-126); Blood Urea Nitrogen 18 mg/dl (9-20); Calcium 9.3 mg/dl (8.4-10.2); Carbon Dioxide 28 mmol/L (22-30); Chloride 101 mmol/L (98-107); Glucose 99 mg/dl (70-99); Potassium 4.7 mmol/L (3.5-5.1); Sodium 139 mmol/L (135-145); Total Bilirubin 0.4 mg/dl (0.2-1.3); Total Protein 6.8 g/dl (6.3-8.2); eGFR > 60.00
== END ==
LOC: SDSPAT 09:08
PROVIDERS: ATTENDING PHYSICIAN Otolaryngology; FAMILY PHYSICIAN Family Medicine
DX: Z01.818 Encounter for other preprocedural examination (principal)
CPT/HCPCS: 36415; 80053; 85027; 93005

== ENCOUNTER 2024-07-21 06:17 | Day surgery (SDC) | payer MEDICARE, OTHER, SELFPAY ==
[2024-06-30 13:33] VITALS: BMI 24.0
--- NOTE | 2024-06-30 14:50 | PTCARENOTE ---
Abn ECG, Dr Glasgow notified, no additional interventions requested.
[2024-07-21] VITALS (8 sets, daily range): BP systolic 124–158; BP diastolic 61–79; BMI 24.0
[2024-07-21] MEDS: NORMOSOL-R/PLASMALYTE-A 1000 IV (07:41)
[2024-07-21 07:43] LABS: Glucose - Point of Care 137 mg/dl (70-99)
[2024-07-21 09:44] LABS: Glucose - Point of Care 163 mg/dl (70-99)
== END 2024-07-21 11:25 | disposition home or self-care (01) ==
LOC: SDS 06:17
PROVIDERS: ATTENDING PHYSICIAN Otolaryngology
DX: J31.1 Chronic nasopharyngitis (principal); H65.92 Unspecified nonsuppurative otitis media, left ear; J34.89 Other specified disorders of nose and nasal sinuses; J33.0 Polyp of nasal cavity; R09.81 Nasal congestion; H90.72 Mixed conductive and sensorineural hearing loss, unilateral, left ear, with unrestricted hearing on the contralateral side
CPT/HCPCS: 31237; 69436; 88305; 82962; L8699